=== PATIENT | male | born 1985 | race African-American/Black ===

== ENCOUNTER 2017-10-14 22:12 | Emergency (ER) | payer OTHER ==
[~2017-10-14] VITALS: Ht 188 cm; Wt 103.0 kg
[~2017-10-14 22:12] MED LIST: CLOTRIMAZOLE AF30 GM TP
[2017-10-15 00:36] VITALS: BP 145/78
[2017-10-15 02:22] LABS: URINE BILIRUBIN NEGATIVE (Negative); URINE BLOOD NEGATIVE (Negative); URINE CLARITY CLEAR; URINE COLOR YELLOW; URINE GLUCOSE-RANDOM* NEGATIVE (Negative); URINE KETONES NEGATIVE (Negative); URINE LEUKOCYTES-REFLEX NEGATIVE (Negative); URINE NITRITE-REFLEX NEGATIVE (Negative); URINE PROTEIN (DIPSTICK) NEGATIVE (Negative); URINE SPECIFIC GRAVITY >= 1.030 (1.005-1.035); URINE UROBILINOGEN 0.2 E.U./dl (0.2-1.0)
== END 2017-10-15 00:37 | disposition home or self-care (01) ==
LOC: ER 22:12
PROVIDERS: Emergency Medicine
DX: Z20.2 Contact with and (suspected) exposure to infections with a predominantly sexual mode of transmission (principal); F17.210 Nicotine dependence, cigarettes, uncomplicated